=== PATIENT | female | born 1995 | race Caucasian/White ===

== ENCOUNTER 2016-12-26 21:18 | Inpatient (IN) | payer BC ==
[~2016-12-26] VITALS: Ht 167.6 cm; Wt 78.0 kg
[2016-12-26] MEDS ORDERED: OXYTOCIN 30U/ 0.9% NaCL 500ML 500 ML IV ONE (21:35)
[2016-12-26] MEDS: D5%-LACTATED RINGERS 1,000 ML IV SCH (21:35)
[2016-12-26] MEDS ORDERED: LIDOCAINE 1%, 20ML ONE (21:40)
[2016-12-26] MEDS ORDERED: NEWBORN KIT ONE (21:40)
[2016-12-26] MEDS ORDERED: OXYTOCIN 30U/ 0.9% NaCL 500ML 500 ML ONE (21:40)
[2016-12-26] MEDS ORDERED: MISOPROSTOL 200 MCG TABLET ONE (21:40)
[2016-12-26] MEDS ORDERED: FENTANYL PF 100 MCG/2ML ONE (21:43)
[2016-12-26] MEDS ORDERED: FENTANYL PF 100 MCG/2ML IV PRN (22:00)
[2016-12-26] MEDS: PLEASE ENTER HEIGHT AND WEIGHT MC SCH (22:00)
[2016-12-26] MEDS ORDERED: LACTATED RINGERS 1,000 ML IVBOLUS PRN ×2 (22:00→23:00)
[2016-12-26] MEDS ORDERED: CALCIUM CARBONATE 500 MG TAB.CHEW PO PRN (22:00)
[2016-12-26] MEDS ORDERED: ONDANSETRON 2MG/ML, 2ML IVPush PRN (22:00)
[2016-12-26] MEDS ORDERED: FENTANYL PF 100 MCG/2ML IVPush PRN (22:00)
[2016-12-26 22:04] VITALS: BP 138/81
[2016-12-26] MEDS: LACTATED RINGERS 1,000 ML IV SCH (22:41)
[2016-12-26] MEDS ORDERED: BUPIVACAINE/PF 0.25% ONE (22:43)
[2016-12-26] MEDS ORDERED: FENTANYL/BUPIV./NS/PF 250 ML EPIDCONT ONE (22:43)
[2016-12-26] MEDS ORDERED: FENTANYL/BUPIV./NS/PF 250 ML EPIDCONT SCH (22:48)
[2016-12-26] MEDS ORDERED: NALOXONE 0.4 MG/ML, 1ML IVPush PRN (23:00)
[2016-12-26] MEDS ORDERED: EPHEDRINE 50 MG/ML, 1ML IVPush PRN (23:00)
[2016-12-27] MEDS ORDERED: ONDANSETRON 2MG/ML, 2ML IV PRN (03:00)
[2016-12-27] MEDS ORDERED: MISOPROSTOL 200 MCG TABLET PR PRN (03:00)
[2016-12-27] MEDS ORDERED: OXYcodone IR 5MG TABLET PO PRN ×2 (03:00)
[2016-12-27] MEDS: LACTATED RINGERS 1,000 ML IV SCH ×4 (03:29→13:35)
[2016-12-27] MEDS: D5%-LACTATED RINGERS 1,000 ML IV SCH ×2 (05:35→13:35)
[2016-12-27] MEDS: PLEASE ENTER HEIGHT AND WEIGHT MC SCH ×3 (06:00→22:00)
[2016-12-27] MEDS ORDERED: OXYTOCIN 30U/ 0.9% NaCL 500ML 500 ML IV PRN (08:30)
[2016-12-27] MEDS: PRENATAL VIT/IRON/FA 1 EACH TABLET PO SCH (09:00)
[2016-12-27 09:17] LABS: ASPARTATE AMINO TRANSFERASE 14 U/L (15-37); BLOOD UREA NITROGEN 9 mg/dL (7-18)
[2016-12-27] MEDS ORDERED: IBUPROFEN 600 MG TABLET ONE (10:06)
[2016-12-27] MEDS ORDERED: OXYcodone/APAP 5/325MG TABLET ONE (10:06)
[2016-12-27] MEDS ORDERED: OXYcodone IR 5MG TABLET ONE (10:10)
[2016-12-27] MEDS: IBUPROFEN 600 MG TABLET PO PRN ×2 (10:13→21:48)
[2016-12-27] MEDS ORDERED: OXYTOCIN 30U/ 0.9% NaCL 500ML 500 ML ONE (11:26)
[2016-12-27] MEDS: OXYTOCIN 30U/ 0.9% NaCL 500ML 500 ML IV SCH ×3 (11:29→23:00)
[2016-12-27 12:30] VITALS: BP 126/82
[2016-12-27 17:57] VITALS: BP 111/67
[2016-12-27 18:50] LABS: DIFF TOTAL CELLS COUNTED 100 CELL DIFF
[2016-12-27 18:52] LABS: VERIFY COUNTS? YES
[2016-12-27 21:45] VITALS: BP 125/84
[2016-12-27] MEDS: DOCUSATE 100 MG CAPSULE PO PRN (21:47)
[2016-12-28 01:30] VITALS: BP 106/65
[2016-12-28 04:45] VITALS: BP 113/63
[2016-12-28] MEDS: IBUPROFEN 600 MG TABLET PO PRN ×2 (04:48→11:52)
[2016-12-28] MEDS: PLEASE ENTER HEIGHT AND WEIGHT MC SCH (06:00)
[2016-12-28 07:15] VITALS: BP 97/52
[2016-12-28] MEDS: PRENATAL VIT/IRON/FA 1 EACH TABLET PO SCH (07:55)
[2016-12-28] MEDS: DOCUSATE 100 MG CAPSULE PO PRN (07:55)
[2016-12-28] MEDS ORDERED: OXYC5TAB3 PO (08:02)
[2016-12-28] MEDS ORDERED: IBUP-1222 PO (08:03)
[2016-12-28] MEDS: OXYTOCIN 30U/ 0.9% NaCL 500ML 500 ML IV SCH (09:00)
== END 2016-12-28 12:44 | disposition home or self-care (01) | DRG 775 ==
LOC: LDOP 21:18 → LDIP 21:54 → 2NW 12-27 12:32
PROVIDERS: ADMIT Obstetrics & Gynecology Gynecology; ATTEND Obstetrics & Gynecology Gynecology
PROC: 10E0XZZ Delivery of Products of Conception, External Approach (ICD-10-PCS; principal; 2016-12-27)
PROC: 0W8NXZZ Division of Female Perineum, External Approach (ICD-10-PCS; 2016-12-27)
PROC: 3E0S3CZ (ICD-10-PCS; 2016-12-27)
PROC: 00HU33Z Insertion of Infusion Device into Spinal Canal, Percutaneous Approach (ICD-10-PCS; 2016-12-27)
PROC: 0HQ9XZZ Repair Perineum Skin, External Approach (ICD-10-PCS; 2016-12-27)
DX: O69.1XX0 Labor and delivery complicated by cord around neck, with compression, not applicable or unspecified (principal); Z37.0 Single live birth; Z3A.40 40 weeks gestation of pregnancy; O41.8X30 Other specified disorders of amniotic fluid and membranes, third trimester, not applicable or unspecified; O70.0 First degree perineal laceration during delivery
CPT/HCPCS: 36415; 80053; 81001; 84550; 85025; 86850; 86900; J3010; J2590; J7120

== ENCOUNTER 2019-04-20 06:02 | Inpatient (IN) | payer OTHER ==
[~2019-04-20] VITALS: Ht 167.6 cm; Wt 81.3 kg
[~2019-04-20 06:02] MED LIST: IBUP-1222 PO; OXYC5TAB3 PO
[2019-04-20] MEDS ORDERED: OXYTOCIN 30U/ 0.9% NaCL 500ML 500 ML IV ONE (06:04)
[2019-04-20] MEDS ORDERED: OXYTOCIN 30U/ 0.9% NaCL 500ML 500 ML ONE ×2 (06:08→21:05)
[2019-04-20] MEDS ORDERED: NEWBORN KIT ONE (06:08)
[2019-04-20] MEDS ORDERED: FLU VACC QS2019-20 36MOS UP/PF 0.5 ML IM-VACC ONE (06:30)
[2019-04-20] MEDS ORDERED: TERBUTALINE 1 MG/ML, 1ML IVPush PRN (06:30)
[2019-04-20] MEDS ORDERED: CALCIUM CARBONATE 500 MG TAB.CHEW PO PRN ×2 (06:30→21:00)
[2019-04-20] MEDS ORDERED: FENTANYL PF 100 MCG/2ML IV PRN (06:30)
[2019-04-20] MEDS ORDERED: FENTANYL PF 100 MCG/2ML IVPush PRN (06:30)
[2019-04-20] MEDS ORDERED: TERBUTALINE 1 MG/ML, 1ML SQ PRN (06:30)
[2019-04-20] MEDS ORDERED: ONDANSETRON 2MG/ML, 2ML IVPush PRN (06:30)
[2019-04-20] MEDS ORDERED: PREN-3 PO (06:35)
[2019-04-20] MEDS: LACTATED RINGERS 1,000 ML IV SCH ×3 (06:43→17:50)
[2019-04-20 06:48] LABS: BASOPHILS # (AUTO) 0.04 x10^3/uL (0-0.1); BASOPHILS % (AUTO) 0 % (0-1); EOSINOPHILS # (AUTO) 0.07 x10^3/uL (0-0.4); EOSINOPHILS % (AUTO) 1 % (1-7); LYMPHOCYTES # (AUTO) 1.95 x10^3/uL (1-3.4); LYMPHOCYTES % (AUTO) 21 % (22-44); MD NO; MEAN CORPUSCULAR HEMOGLOBIN 30.1 pg (27.0-34.8); MEAN CORPUSCULAR HGB CONC 33.5 g/dL (32.4-35.8); MEAN CORPUSCULAR VOLUME 89.8 fL (80-100); MEAN PLATELET VOLUME 8.3 fL (7.4-10.4); MONOCYTES # (AUTO) 0.79 x10^3/uL (0.2-0.8); MONOCYTES % (AUTO) 9 % (2-9); NEUTROPHILS # (AUTO) 6.28 x10^3/uL (1.8-6.8); NEUTROPHILS % (AUTO) 69 % (42-75); PLATELET COUNT 236 x10^3/uL (130-400); RED BLOOD COUNT 3.92 x10^6/uL (3.82-5.3); RED CELL DISTRIBUTION WIDTH 13.3 % (9.6-15.2)
[2019-04-20] MEDS ORDERED: OXYTOCIN 30U/ 0.9% NaCL 500ML 500 ML IV PRN (06:55)
[2019-04-20 09:24] LABS: AMPHETAMINE SCREEN, URINE Negative (Negative); BARBITURATE SCREEN, URINE Negative (Negative); BENZODIAZEPINE SCREEN, URINE Negative (Negative); CANNABINOID SCREEN, URINE Negative (Negative); COCAINE SCREEN, URINE Negative (Negative); METHADONE SCREEN, URINE Negative (Negative); OPIATE SCREEN, URINE Negative (Negative)
[2019-04-20] MEDS: D5%-LACTATED RINGERS 1,000 ML IV SCH ×2 (14:04→15:24)
[2019-04-20] MEDS ORDERED: FENTANYL/BUPIV./NS/PF 250 ML EPIDCONT ONE (14:07)
[2019-04-20] MEDS ORDERED: BUPIVACAINE 0.25% ONE (14:39)
[2019-04-20] MEDS ORDERED: LIDOCAINE/PF 1.5%-EPI 1:200K, 30ML ONE (14:45)
[2019-04-20] MEDS ORDERED: ACETAMINOPHEN 325 MG TABLET PO PRN ×2 (21:00)
[2019-04-20] MEDS ORDERED: SIMETHICONE 80 MG CHEW TAB PO PRN (21:00)
[2019-04-20] MEDS ORDERED: ONDANSETRON 2MG/ML, 2ML IV PRN (21:00)
[2019-04-20] MEDS ORDERED: OXYcodone IR 5MG TABLET PO PRN (21:00)
[2019-04-20] MEDS ORDERED: MISOPROSTOL 200 MCG TABLET PR PRN (21:00)
[2019-04-20] MEDS ORDERED: BISACODYL 10 MG SUPP PR PRN (21:00)
[2019-04-20] MEDS ORDERED: DOCUSATE 100 MG CAPSULE PO PRN (21:00)
[2019-04-20] MEDS ORDERED: GLYCERIN ADULT SUPP PR PRN (21:00)
[2019-04-20] MEDS ORDERED: RHOGAM FROM BLOOD BANK 1 NOTE EA IM/IV ONE (21:00)
[2019-04-20] MEDS ORDERED: METOCLOPRAMIDE 5 MG/ML, 2ML IV PRN (21:00)
[2019-04-20] MEDS: OXYTOCIN 30U/ 0.9% NaCL 500ML 500 ML IV SCH (21:09)
[2019-04-20 23:05] VITALS: BP 123/81
[2019-04-21 02:20] VITALS: BP 117/77
[2019-04-21] MEDS: IBUPROFEN 800 MG TABLET PO PRN ×3 (02:30→20:55)
[2019-04-21 05:12] LABS: BASOPHILS # (AUTO) 0.05 x10^3/uL (0-0.1); BASOPHILS % (AUTO) 0 % (0-1); EOSINOPHILS # (AUTO) 0.16 x10^3/uL (0-0.4); EOSINOPHILS % (AUTO) 1 % (1-7); LYMPHOCYTES # (AUTO) 1.69 x10^3/uL (1-3.4); LYMPHOCYTES % (AUTO) 11 % (22-44); MD NO; MEAN CORPUSCULAR HEMOGLOBIN 29.7 pg (27.0-34.8); MEAN CORPUSCULAR HGB CONC 33.2 g/dL (32.4-35.8); MEAN CORPUSCULAR VOLUME 89.6 fL (80-100); MEAN PLATELET VOLUME 8.8 fL (7.4-10.4); MONOCYTES # (AUTO) 1.41 x10^3/uL (0.2-0.8); MONOCYTES % (AUTO) 9 % (2-9); NEUTROPHILS # (AUTO) 11.73 x10^3/uL (1.8-6.8); NEUTROPHILS % (AUTO) 78 % (42-75); PLATELET COUNT 227 x10^3/uL (130-400); RED BLOOD COUNT 3.88 x10^6/uL (3.82-5.3)
[2019-04-21] MEDS: OXYTOCIN 30U/ 0.9% NaCL 500ML 500 ML IV SCH ×2 (06:54→16:54)
[2019-04-21 07:45] VITALS: BP 112/73
[2019-04-21] MEDS ORDERED: PRENATAL VIT/IRON/FA 1 EACH TABLET PO SCH (09:00)
[2019-04-21] MEDS ORDERED: IBUP200T49 PO (17:30)
[2019-04-21 19:50] VITALS: BP 132/82
== END 2019-04-21 22:10 | disposition home or self-care (01) | DRG 807 ==
LOC: LDIP 06:02 → 2NW 22:50
PROVIDERS: ADMIT Student in an Organized Health Care Education/Training Program; ATTEND Student in an Organized Health Care Education/Training Program
PROC: 10E0XZZ Delivery of Products of Conception, External Approach (ICD-10-PCS; principal; 2019-04-20)
PROC: 0HQ9XZZ Repair Perineum Skin, External Approach (ICD-10-PCS; 2019-04-20)
PROC: 3E0R3BZ Introduction of Anesthetic Agent into Spinal Canal, Percutaneous Approach (ICD-10-PCS; 2019-04-20)
PROC: 00HU33Z Insertion of Infusion Device into Spinal Canal, Percutaneous Approach (ICD-10-PCS; 2019-04-20)
DX: O70.0 First degree perineal laceration during delivery (principal); Z37.0 Single live birth; Z3A.39 39 weeks gestation of pregnancy
CPT/HCPCS: 36415; J3490; J7121; 80307; 85025; 86850; 86900; G0378; J2590; J3010; J7120

== ENCOUNTER 2019-06-21 10:43 | Emergency (ER) | payer OTHER ==
[~2019-06-21] VITALS: Ht 167.6 cm; Wt 75.3 kg
[~2019-06-21 10:43] MED LIST changes: +IBUP200T49 PO; +PREN-3 PO
[2019-06-21 11:46] VITALS: BP 139/94
[2019-06-21 12:16] LABS: BASOPHILS # (AUTO) 0.09 x10^3/uL (0-0.1); BASOPHILS % (AUTO) 1 % (0-1); EOSINOPHILS # (AUTO) 0.01 x10^3/uL (0-0.4); EOSINOPHILS % (AUTO) 0 % (1-7); LYMPHOCYTES # (AUTO) 1.32 x10^3/uL (1-3.4); LYMPHOCYTES % (AUTO) 10 % (22-44); MD NO; MEAN CORPUSCULAR HGB CONC 33.6 g/dL (32.4-35.8); MEAN CORPUSCULAR VOLUME 86.3 fL (80-100); MEAN PLATELET VOLUME 8.7 fL (7.4-10.4); MONOCYTES # (AUTO) 0.51 x10^3/uL (0.2-0.8); MONOCYTES % (AUTO) 4 % (2-9); NEUTROPHILS # (AUTO) 10.81 x10^3/uL (1.8-6.8); NEUTROPHILS % (AUTO) 85 % (42-75); PLATELET COUNT 299 x10^3/uL (130-400); RED BLOOD COUNT 4.92 x10^6/uL (3.82-5.3); RED CELL DISTRIBUTION WIDTH 13.3 % (9.6-15.2)
[2019-06-21 12:26] LABS: ALANINE AMINOTRANSFERASE 49 U/L (12-78); ALBUMIN 3.9 g/dL (3.4-5.0); ANION GAP 6 mmol/L (5-15); CALCIUM 8.8 mg/dL (8.5-10.1); CHLORIDE 108 mmol/L (98-107); CREATININE 0.85 mg/dL (0.55-1.02)
[2019-06-21 12:31] LABS: ALKALINE PHOSPHATASE 135 U/L (45-117); BILIRUBIN,TOTAL 0.3 mg/dL (0.2-1.0); TOTAL PROTEIN 7.8 g/dL (6.4-8.2)
--- NOTE | 2019-06-21 14:58 | NUR ---
NO ANSWER WHEN CALLED FOR ROOM.
--- NOTE | 2019-06-21 15:50 | NUR ---
LATE ENTRY [id number] - NO ANSWER X 2
--- NOTE | 2019-06-21 15:50 | NUR ---
NO ANSWER X 3
== END 2019-06-21 15:53 | disposition left against medical advice (07) ==
LOC: ED 15:45
DX: R10.31 Right lower quadrant pain (principal); R11.2 Nausea with vomiting, unspecified; R19.7 Diarrhea, unspecified
CPT/HCPCS: 36415; 80053; 84703; 85025; 99283